=== PATIENT | male | born 1950 | race African-American/Black ===

== ENCOUNTER 2018-04-30 11:19 | Inpatient (IN) ==
[2018-04-30] MEDS ORDERED: SODIUM CHLORIDE 0.9% 500 ML IV STA (12:30)
[2018-04-30] MEDS ORDERED: NITROGLYCERIN 2% OINT 1 INCH/GM PACK TOP STA (12:30)
[2018-04-30] MEDS ORDERED: ONDANSETRON 4 MG/2 ML VIAL IV STA (12:30)
[2018-04-30] MEDS ORDERED: ASPIRIN 325 MG TABLET PO STA (12:30)
[2018-04-30] MEDS ORDERED: ALUM/MAG/SIMETH/LIDO VISC 1:1 30 ML BOTTLE PO STA (12:30)
[2018-04-30] MEDS ORDERED: MORPHINE 4 MG/1 ML VIAL IV STA (12:30)
[2018-04-30 12:44] LABS: Basophils % 0.2 % (0.0-0.8); Eosinophils % 0.1 % (0.00-10.9); Hematocrit 34.3 VOL% (42.0-52.0); Immature Granulocytes Absolute 0.36 #; Lymphocytes # 0.5 10*3/uL (1.4-4.0); Lymphocytes % 2.8 % (21.2-54.2); Mean Corpuscular HGB Conc 39.1 GM/DL (32-36); Mean Corpuscular Hemoglobin 35 PG (27-34); Mean Corpuscular Volume 90.3 FL (87-102); Mean Platelet Volume 10.2 FL (9.6-12.0); Monocytes # 0.7 10*3/uL (0.11-0.8); Monocytes % 3.9 % (1.7-12.7); Neutrophils # 16.2 10*3/uL (1.4-7.4); Platelet Count 171 T/CUMM (130-400); Red Cell Distribution Width 12.9 % (9.3-17.3); White Blood Count 17.8 T/CUMM (4-12)
[2018-04-30 12:46] LABS: INR 1.1; PT Patient Result 11.4 SECS
[2018-04-30 12:56] LABS: Hemoglobin 13.4 GM/DL (14.0-18.0)
[2018-04-30 13:01] LABS: Band Neutrophils 1 % (0-10); Hypochromasia 1+; Lymphocytes 1 % (20-55); Platelet Estimate Normal; Segmented Neutrophils 93 % (50-85); Total Cells Counted 100
[2018-04-30 13:02] LABS: Macrocytosis Slight
[2018-04-30 13:50] LABS: Apearance,Urine CLOUDY (Clear); Bacteria,Urine Many /HPF (Few); Bilirubin,Urine Negative (Negative); Blood, Urine Large mg/dL (Negative); Glucose,Urine (UA) Negative (Negative); Ketones,Urine Negative (Negative); Mucus,Urine Occasional /LPF (Occasional); Nitrite,Urine Negative (Negative); Protein,Urine 100 MG/DL; RBC,Urine 89 /HPF (0-4); Squamous Epithelial Cell,Urine Occasional /HPF (0-10); Urine Specific Gravity 1.009 (1.001-1.035); WBC,Urine 690 /HPF (0-6)
[2018-04-30 13:54] LABS: Urine Color YELLOW. (Yellow)
[2018-04-30] MEDS ORDERED: cefTRIAXone 1,000 MG in SODIUM CHLORIDE 0.9% 100 ML IV STA (14:00)
[2018-04-30 16:02] LABS: Albumin 3.8 G/DL (3.4-5.0); Bilirubin,Total 1.7 MG/DL (0.2-1.0); Calcium 9.3 MG/DL (8.5-10.1); Osmolality,Calculated 239.5 MOS/KG (273-304); Potassium 3.9 MMOL/L (3.5-5.1); Total Protein 8.2 G/DL (6.4-8.3)
[2018-04-30] MEDS ORDERED: HYDROCORTISONE 100 MG VIAL IV STA (16:36)
[2018-04-30] MEDS ORDERED: ONDANSETRON 4 MG/2 ML VIAL IV PRN (17:14)
[2018-04-30] MEDS ORDERED: HYDROmorphone 2 MG/1 ML VIAL IV PRN (17:14)
[2018-04-30] MEDS ORDERED: LEVOFLOXACIN INJ 500 MG in PREMIX 1 EACH IV ONE (18:30)
[2018-04-30] MEDS ORDERED: LEVOFLOXACIN INJ 500 MG in PREMIX 1 EACH IV SCH (18:44)
[2018-04-30] MEDS ORDERED: MEROPENEM 1,000 MG in SODIUM CHLORIDE 0.9% 100 ML IV SCH (18:44)
[2018-04-30] MEDS: SODIUM CHLORIDE 0.9% 1,000 ML IV SCH (18:50)
[2018-04-30] MEDS ORDERED: ENOXAPARIN 30 MG/0.3 ML SYRINGE SUBCUT SCH (21:00)
[2018-04-30] MEDS: MEROPENEM 500 MG in SYRINGE 1 EACH IV SCH (21:40)
[2018-04-30 22:46] LABS: Calcium 8.7 MG/DL (8.5-10.1); Osmolality,Calculated 244.2 MOS/KG (273-304); Potassium 4.2 MMOL/L (3.5-5.1)
[2018-05-01 02:38] LABS: Albumin 2.7 G/DL (3.4-5.0); Bilirubin,Total 1.2 MG/DL (0.2-1.0); Calcium 8.5 MG/DL (8.5-10.1); Osmolality,Calculated 249.8 MOS/KG (273-304); Potassium 3.7 MMOL/L (3.5-5.1); Total Protein 6.7 G/DL (6.4-8.3)
[2018-05-01 02:49] LABS: Basophils % 0.2 % (0.0-0.8); Hematocrit 28.7 VOL% (42.0-52.0); Hemoglobin 11.1 GM/DL (14.0-18.0); Immature Granulocytes % 1.3 %; Immature Granulocytes Absolute 0.16 #; Lymphocytes # 0.2 10*3/uL (1.4-4.0); Lymphocytes % 1.8 % (21.2-54.2); Mean Corpuscular HGB Conc 38.7 GM/DL (32-36); Mean Corpuscular Hemoglobin 35 PG (27-34); Mean Corpuscular Volume 90.8 FL (87-102); Mean Platelet Volume 9.5 FL (9.6-12.0); Monocytes # 0.3 10*3/uL (0.11-0.8); Neutrophils % 94.7 % (38.7-73.9); Platelet Count 129 T/CUMM (130-400); Red Blood Count 3.16 MC/CUMM (3.8-5.5); Red Cell Distribution Width 12.6 % (9.3-17.3); White Blood Count 12.7 T/CUMM (4-12)
[2018-05-01 03:00] LABS: Band Neutrophils 27 % (0-10); Lymphocytes 1 % (20-55); Nucleated Red Blood Cells 1 (0-5); Segmented Neutrophils 71 % (50-85); Total Cells Counted 100
[2018-05-01] MEDS: SODIUM CHLORIDE 0.9% 1,000 ML IV SCH ×3 (03:11→23:20)
[2018-05-01] MEDS: MEROPENEM 500 MG in SYRINGE 1 EACH IV SCH ×3 (03:47→21:00)
[2018-05-01 05:39] LABS: Calcium 8.4 MG/DL (8.5-10.1); Osmolality,Calculated 251.6 MOS/KG (273-304); Potassium 3.7 MMOL/L (3.5-5.1)
[2018-05-01] MEDS ORDERED: NIFEdipine 10 MG CAPSULE PO PRN (07:58)
[2018-05-01] MEDS: amLODIPine 10 MG TABLET PO SCH (08:13)
[2018-05-01] MEDS: PANTOPRAZOLE 40 MG TABLET PO SCH (08:13)
[2018-05-01] MEDS ORDERED: ALUMINUM/MAGNES/SIMETH MAX STR 30 ML UDCUP PO PRN (09:53)
[2018-05-01] MEDS: LEVOFLOXACIN INJ 250 MG in PREMIX 1 EACH IV SCH (21:00)
[2018-05-01] MEDS: ENOXAPARIN 40 MG/0.4 ML SYRINGE SUBCUT SCH (21:02)
[2018-05-02] MEDS: MEROPENEM 500 MG in SYRINGE 1 EACH IV SCH ×3 (04:06→21:16)
[2018-05-02 07:07] LABS: Basophils % 0.1 % (0.0-0.8); Eosinophils % 0.1 % (0.00-10.9); Immature Granulocytes % 0.4 %; Immature Granulocytes Absolute 0.03 #
[2018-05-02 07:14] LABS: INR 1.1; PT Patient Result 11.2 SECS
[2018-05-02 07:30] LABS: Ammonia < 10 UMOL/L (11-32)
[2018-05-02 07:33] LABS: Hemoglobin 11.5 GM/DL (14.0-18.0); Lymphocytes # 0.4 10*3/uL (1.4-4.0); Lymphocytes % 5.4 % (21.2-54.2); Mean Corpuscular HGB Conc 39.1 GM/DL (32-36); Mean Corpuscular Hemoglobin 35 PG (27-34); Mean Corpuscular Volume 90.2 FL (87-102); Mean Platelet Volume 9.7 FL (9.6-12.0); Monocytes # 0.5 10*3/uL (0.11-0.8); Monocytes % 5.6 % (1.7-12.7); Neutrophils # 7.1 10*3/uL (1.4-7.4); Neutrophils % 88.4 % (38.7-73.9); Platelet Count 151 T/CUMM (130-400); Red Blood Count 3.26 MC/CUMM (3.8-5.5); Red Cell Distribution Width 12.7 % (9.3-17.3)
[2018-05-02 07:36] LABS: Alanine Aminotransferase 20 U/L (16-61); Albumin 2.8 G/DL (3.4-5.0); Alkaline Phosphatase 79 U/L (45-117); Aspartate Amino Transferase 24 U/L (0-37); Blood Urea Nitrogen 13 MG/DL (7-18); Calcium 8.7 MG/DL (8.5-10.1); Glucose 81 MG/DL (74-106); Osmolality,Calculated 260.7 MOS/KG (273-304); Potassium 2.9 MMOL/L (3.5-5.1); Sodium 131 MMOL/L (136-145); Total Protein 6.9 G/DL (6.4-8.3); Troponin I Only < 0.015 NG/ML (0.00-0.045)
[2018-05-02 07:40] LABS: Hematocrit 29.4 VOL% (42.0-52.0)
[2018-05-02 07:41] LABS: Hypochromasia 1+; Macrocytosis Slight; Platelet Estimate Normal
[2018-05-02] MEDS: SODIUM CHLORIDE 0.9% 1,000 ML IV SCH ×2 (10:22→15:00)
[2018-05-02] MEDS: POTASSIUM CHLORIDE RIDER 10 MEQ in PREMIX 1 EACH IV SCH ×5 (14:51→18:13)
[2018-05-02] MEDS: PANTOPRAZOLE 40 MG TABLET PO SCH (15:00)
[2018-05-02] MEDS: amLODIPine 10 MG TABLET PO SCH (15:00)
[2018-05-02] MEDS ORDERED: BISACODYL 5 MG TABLET PO ONE (17:00)
[2018-05-02] MEDS: LEVOFLOXACIN INJ 250 MG in PREMIX 1 EACH IV SCH (21:17)
[2018-05-02] MEDS: ENOXAPARIN 40 MG/0.4 ML SYRINGE SUBCUT SCH (21:17)
[2018-05-03] MEDS: MEROPENEM 500 MG in SYRINGE 1 EACH IV SCH ×3 (03:00→20:55)
[2018-05-03] MEDS: SODIUM CHLORIDE 0.9% 1,000 ML IV SCH ×3 (04:34→23:47)
[2018-05-03 06:22] LABS: Bilirubin,Total 1.1 MG/DL (0.2-1.0); Calcium 9.3 MG/DL (8.5-10.1); Osmolality,Calculated 260.7 MOS/KG (273-304); Potassium 2.9 MMOL/L (3.5-5.1); Total Protein 7.5 G/DL (6.4-8.3)
[2018-05-03 06:33] LABS: Basophils % 0.2 % (0.0-0.8); Eosinophils % 0.2 % (0.00-10.9); Hemoglobin 11.7 GM/DL (14.0-18.0); Immature Granulocytes % 0.5 %; Immature Granulocytes Absolute 0.03 #; Lymphocytes # 0.6 10*3/uL (1.4-4.0); Lymphocytes % 10.3 % (21.2-54.2); Mean Corpuscular HGB Conc 39.1 GM/DL (32-36); Mean Corpuscular Hemoglobin 36 PG (27-34); Mean Corpuscular Volume 90.6 FL (87-102); Mean Platelet Volume 9.2 FL (9.6-12.0); Monocytes # 0.6 10*3/uL (0.11-0.8); Monocytes % 9.8 % (1.7-12.7); Neutrophils # 4.5 10*3/uL (1.4-7.4); Platelet Count 157 T/CUMM (130-400); Red Cell Distribution Width 12.8 % (9.3-17.3); White Blood Count 5.6 T/CUMM (4-12)
[2018-05-03 06:45] LABS: Hematocrit 29.9 VOL% (42.0-52.0)
[2018-05-03 06:55] LABS: Hypochromasia 1+; Platelet Estimate Normal
[2018-05-03 06:56] LABS: Macrocytosis Slight
[2018-05-03] MEDS: POTASSIUM CHLORIDE RIDER 10 MEQ in PREMIX 1 EACH IV SCH ×3 (08:05→11:54)
[2018-05-03] MEDS: amLODIPine 10 MG TABLET PO SCH (09:49)
[2018-05-03] MEDS: PANTOPRAZOLE 40 MG TABLET PO SCH (09:49)
[2018-05-03] MEDS ORDERED: POTASSIUM CHLORIDE 20 MEQ TABLET PO ONE (11:29)
[2018-05-03] MEDS: LEVOFLOXACIN INJ 250 MG in PREMIX 1 EACH IV SCH (20:55)
[2018-05-03] MEDS: ENOXAPARIN 40 MG/0.4 ML SYRINGE SUBCUT SCH (20:56)
[2018-05-04] MEDS: MEROPENEM 500 MG in SYRINGE 1 EACH IV SCH ×2 (04:37→12:02)
[2018-05-04 06:29] LABS: Calcium 8.9 MG/DL (8.5-10.1); Osmolality,Calculated 264.4 MOS/KG (273-304)
[2018-05-04] MEDS ORDERED: MAGNESIUM SULF INJ 3 GM in SODIUM CHLORIDE 0.9% 100 ML IV ONE (07:21)
[2018-05-04] MEDS ORDERED: POTASSIUM CHLORIDE 20 MEQ TABLET PO SCH (09:00)
[2018-05-04] MEDS ORDERED: MAGNESIUM OXIDE 400 MG TABLET PO SCH (09:00)
[2018-05-04] MEDS: PANTOPRAZOLE 40 MG TABLET PO SCH (09:35)
[2018-05-04] MEDS: amLODIPine 10 MG TABLET PO SCH (09:35)
[2018-05-04] MEDS: POTASSIUM CHLORIDE RIDER 10 MEQ in PREMIX 1 EACH IV SCH ×2 (09:44→10:38)
[2018-05-04] MEDS ORDERED: POTASSIUM CHLORIDE 20 MEQ TABLET PO ONE (10:29)
[2018-05-04] MEDS: SODIUM CHLORIDE 0.9% 1,000 ML IV SCH (10:38)
[2018-05-04 12:21] VITALS: BP 124/79
== END 2018-05-04 13:36 | disposition swing bed (61) | DRG 871 ==
LOC: N.ED 11:19 → N.EDINP 16:43 → SUATTDRO 16:43 → N.CC 17:12 → N.5E 05-01 09:45
PROVIDERS: ADMIT Internal Medicine

== ENCOUNTER 2018-07-29 11:16 | Inpatient (IN) ==
[2018-07-29 12:35] LABS: Osmolality,Calculated 265.5 MOS/KG (273-304); Potassium 3.7 MMOL/L (3.5-5.1)
[2018-07-29 12:49] LABS: Basophils % 0.1 % (0.0-0.8); Eosinophils % 0.1 % (0.00-10.9); Hematocrit 34.7 VOL% (42.0-52.0); Hemoglobin 13.3 GM/DL (14.0-18.0); Immature Granulocytes % 0.3 %; Immature Granulocytes Absolute 0.02 #; Lymphocytes # 0.7 10*3/uL (1.4-4.0); Lymphocytes % 8.8 % (21.2-54.2); Mean Corpuscular HGB Conc 38.3 GM/DL (32-36); Mean Corpuscular Hemoglobin 33 PG (27-34); Mean Corpuscular Volume 86.1 FL (87-102); Mean Platelet Volume 9.8 FL (9.6-12.0); Monocytes # 0.4 10*3/uL (0.11-0.8); Monocytes % 5.5 % (1.7-12.7); Neutrophils # 6.3 10*3/uL (1.4-7.4); Neutrophils % 85.2 % (38.7-73.9); Platelet Count 170 T/CUMM (130-400); Red Blood Count 4.03 MC/CUMM (3.8-5.5); Red Cell Distribution Width 13.9 % (9.3-17.3); White Blood Count 7.4 T/CUMM (4-12)
[2018-07-29 13:13] LABS: Platelet Estimate Normal
[2018-07-29 13:14] LABS: Anisocytosis 1+; Macrocytosis Slight; Target Cells Few
[2018-07-29] MEDS ORDERED: ACETAMINOPHEN 500 MG TABLET PO STA (16:04)
[2018-07-29] MEDS ORDERED: ACETAMINOPHEN 500 MG TABLET ONE (16:45)
[2018-07-29] MEDS ORDERED: ONDANSETRON 4 MG/2 ML VIAL IV PRN (17:09)
[2018-07-29] MEDS: SODIUM CHLORIDE 0.9% 1,000 ML IV SCH (21:58)
[2018-07-29] MEDS: cefTRIAXone 1,000 MG in SYRINGE 1 EACH IV SCH (21:59)
[2018-07-30] MEDS: cefTRIAXone 1,000 MG in SYRINGE 1 EACH IV SCH (05:17)
[2018-07-30 05:48] LABS: Albumin 3.9 G/DL (3.4-5.0); Bilirubin,Total 0.7 MG/DL (0.2-1.0); Calcium 9.9 MG/DL (8.5-10.1); Potassium 3.3 MMOL/L (3.5-5.1); Thyroid Stimulating Hormone 1.98 uIU/ml (0.358-3.74); Total Protein 7.9 G/DL (6.4-8.3)
[2018-07-30 06:20] LABS: Basophils % 0.4 % (0.0-0.8); Eosinophils # 0.1 10*3/uL (0.0-0.87); Eosinophils % 1.2 % (0.00-10.9); Hematocrit 33.3 VOL% (42.0-52.0); Hemoglobin 12.6 GM/DL (14.0-18.0); Immature Granulocytes % 0.2 %; Immature Granulocytes Absolute 0.01 #; Lymphocytes # 1.3 10*3/uL (1.4-4.0); Lymphocytes % 25.3 % (21.2-54.2); Mean Corpuscular HGB Conc 37.8 GM/DL (32-36); Mean Corpuscular Hemoglobin 33 PG (27-34); Mean Corpuscular Volume 88.1 FL (87-102); Mean Platelet Volume 10.6 FL (9.6-12.0); Monocytes # 0.5 10*3/uL (0.11-0.8); Monocytes % 10.4 % (1.7-12.7); Neutrophils # 3.1 10*3/uL (1.4-7.4); Neutrophils % 62.5 % (38.7-73.9); Platelet Count 152 T/CUMM (130-400); Red Blood Count 3.78 MC/CUMM (3.8-5.5)
[2018-07-30 06:34] LABS: Hypochromasia 1+; Lymphocytes 29 % (20-55); Macrocytosis Slight; Platelet Estimate Normal; Segmented Neutrophils 62 % (50-85); Total Cells Counted 100
[2018-07-30] MEDS: SODIUM CHLORIDE 0.9% 1,000 ML IV SCH (08:20)
[2018-07-30] MEDS ORDERED: PANTOPRAZOLE 40 MG TABLET PO SCH (09:00)
[2018-07-30] MEDS ORDERED: POTASSIUM CHLORIDE 20 MEQ TABLET PO PRN (09:20)
[2018-07-30] MEDS ORDERED: ACETAMINOPHEN 325 MG TABLET PO PRN (09:56)
[2018-07-30] MEDS ORDERED: LORazepam 1 MG TABLET PO ONE (10:29)
[2018-07-30 13:11] VITALS: BP 154/72
[2018-07-30] MEDS ORDERED: TAMSULOSIN 0.4 MG CAPSULE PO SCH (21:00)
== END 2018-07-30 14:30 | disposition hospice, home (50) | DRG 698 ==
LOC: EDBD → EDUNIT# → N.ED 11:16 → N.EDINP 17:09 → N.5E 19:25
PROVIDERS: ADMIT Internal Medicine; ATTEND Internal Medicine

== ENCOUNTER 2018-08-12 03:25 | Inpatient (IN) ==
[2018-08-12] MEDS ORDERED: SODIUM CHLORIDE 0.9% 1,000 ML IV STA (03:39)
[2018-08-12 04:10] LABS: Basophils # 0.1 10*3/uL (0.0-0.2); Basophils % 0.7 % (0.0-0.8); Eosinophils # 0.1 10*3/uL (0.0-0.87); Eosinophils % 1.2 % (0.00-10.9); Hematocrit 41.2 VOL% (42.0-52.0); Hemoglobin 14.2 GM/DL (14.0-18.0); Immature Granulocytes % 0.3 %; Immature Granulocytes Absolute 0.02 #; Lymphocytes # 1.8 10*3/uL (1.4-4.0); Lymphocytes % 24.5 % (21.2-54.2); Mean Corpuscular HGB Conc 34.5 GM/DL (32-36); Mean Corpuscular Hemoglobin 32 PG (27-34); Mean Platelet Volume 11.3 FL (9.6-12.0); Monocytes # 0.3 10*3/uL (0.11-0.8); Monocytes % 4.7 % (1.7-12.7); Neutrophils % 68.6 % (38.7-73.9); Platelet Count 341 T/CUMM (130-400); Red Blood Count 4.43 MC/CUMM (3.8-5.5); Red Cell Distribution Width 15.5 % (9.3-17.3); White Blood Count 7.3 T/CUMM (4-12)
[2018-08-12] MEDS ORDERED: ETOMIDATE 20 MG/10 ML VIAL IV STA (04:21)
[2018-08-12] MEDS ORDERED: ROCURONIUM 100 MG/10 ML VIAL IV STA (04:21)
[2018-08-12 04:32] LABS: Alanine Aminotransferase 26 U/L (16-61); Albumin 3.7 G/DL (3.4-5.0); Alkaline Phosphatase 88 U/L (45-117); Aspartate Amino Transferase 61 U/L (0-37); Blood Urea Nitrogen 55 MG/DL (7-18); Calcium 10.2 MG/DL (8.5-10.1); Glucose 99 MG/DL (74-106); Osmolality,Calculated 323.2 MOS/KG (273-304); Potassium 5.8 MMOL/L (3.5-5.1); Sodium 156 MMOL/L (136-145); Total Protein 10.2 G/DL (6.4-8.3)
[2018-08-12 04:36] LABS: Lactic Acid 3.5 MMOL/L (0.4-2.0)
[2018-08-12] MEDS ORDERED: ATROPINE 1 MG/10 ML SYRINGE ONE (04:45)
[2018-08-12] MEDS ORDERED: EPINEPHrine 1 MG/ML VIAL ONE (04:45)
[2018-08-12] MEDS ORDERED: SODIUM CHLORIDE 0.9% 2,000 ML IV STA (05:14)
[2018-08-12] MEDS ORDERED: ALBUTEROL 2.5 MG/3 ML NEB RESP TX PRN (05:39)
[2018-08-12] MEDS ORDERED: ONDANSETRON 4 MG/2 ML VIAL IV PRN (05:39)
[2018-08-12 05:47] LABS: Apearance,Urine Slightly Hazy (Clear); Bilirubin,Urine Negative (Negative); Blood, Urine Small mg/dL (Negative); Glucose,Urine (UA) Negative (Negative); Ketones,Urine 5 mg/dL (Negative); Nitrite,Urine Negative (Negative); Protein,Urine 30 MG/DL; RBC,Urine 7 /HPF (0-4); Urine Color Yellow (Yellow); Urine Specific Gravity 1.019 (1.001-1.035); Urine Urobilinogen < 2.0 EU/DL (0.2-1.0); WBC,Urine 8 /HPF (0-6)
[2018-08-12] MEDS ORDERED: SODIUM CHLORIDE 0.9% 1,000 ML IV SCH (06:00)
[2018-08-12] MEDS ORDERED: GLUCAGON 1 MG VIAL IM PRN (06:07)
[2018-08-12] MEDS ORDERED: DEXTROSE 50% 25 GM/50 ML VIAL IV PRN (06:07)
[2018-08-12 06:08] LABS: ABG Base Excess -11.8 MMOL/L (-2.5-2.5); ABG HCO3 15.3 MMOL/L (20-26); ABG Oxygen Saturation 99.2 % (95-100); ABG PCO2 45.4 MM HG (35-48); ABG TCO2 15.4 MMOL/L (23-27); Pt O2 Delivery Device Ventilator
[2018-08-12 06:09] LABS: ABG PH 7.174 (7.35-7.45)
[2018-08-12] MEDS ORDERED: SODIUM POLYSTYRENE SULFATE 15 GM/60 ML BOTTLE PO STA (06:21)
[2018-08-12] MEDS: INSULIN REGULAR 100 UNIT/ML SUBCUT SCH ×4 (06:50→23:12)
[2018-08-12] MEDS: PANTOPRAZOLE 40 MG VIAL IV SCH (06:55)
[2018-08-12] MEDS ORDERED: SODIUM CHLORIDE 0.45% 1,000 ML IV SCH (07:00)
[2018-08-12 07:41] LABS: ABG HCO3 16.5 MMOL/L (20-26); ABG Oxygen Saturation 99.3 % (95-100); ABG PCO2 43.6 MM HG (35-48); ABG PH 7.214 (7.35-7.45); ABG TCO2 16.3 MMOL/L (23-27)
[2018-08-12] MEDS: PROPOFOL 1,000 MG/100 ML BOTTLE IV SCH ×2 (07:46→15:41)
[2018-08-12] MEDS: SODIUM BICARB INJ 50 MEQ in STERILE WATER INJ 1,000 ML IV SCH (08:26)
[2018-08-12 08:46] LABS: Calcium 8.6 MG/DL (8.5-10.1); Osmolality,Calculated 328.7 MOS/KG (273-304); Potassium 4.7 MMOL/L (3.5-5.1)
[2018-08-12 09:08] LABS: Risk Ratio 7.08; Thyroid Stimulating Hormone 3.28 uIU/ml (0.358-3.74); VLDL CHOLESTEROL 38.6 MG/DL
[2018-08-12 12:23] LABS: Calcium 8.8 MG/DL (8.5-10.1); Osmolality,Calculated 326.9 MOS/KG (273-304); Potassium 4.5 MMOL/L (3.5-5.1)
[2018-08-12 15:47] LABS: Calcium 8.4 MG/DL (8.5-10.1)
[2018-08-12 15:48] LABS: Osmolality,Calculated 328.7 MOS/KG (273-304); Potassium 3.9 MMOL/L (3.5-5.1)
[2018-08-12 19:30] LABS: Potassium 4.2 MMOL/L (3.5-5.1)
[2018-08-13 04:17] LABS: ABG Base Excess -5.2 MMOL/L (-2.5-2.5); ABG HCO3 20.2 MMOL/L (20-26); ABG PCO2 29.3 MM HG (35-48); ABG PH 7.404 (7.35-7.45); ABG TCO2 16.2 MMOL/L (23-27)
[2018-08-13 04:26] LABS: Basophils % 0.3 % (0.0-0.8); Eosinophils # 0.1 10*3/uL (0.0-0.87); Eosinophils % 0.9 % (0.00-10.9); Hematocrit 27.1 VOL% (42.0-52.0); Hemoglobin 9.5 GM/DL (14.0-18.0); Immature Granulocytes % 0.4 %; Immature Granulocytes Absolute 0.04 #; Lymphocytes # 1.5 10*3/uL (1.4-4.0); Lymphocytes % 14.7 % (21.2-54.2); Mean Corpuscular HGB Conc 35.1 GM/DL (32-36); Mean Corpuscular Hemoglobin 32 PG (27-34); Mean Corpuscular Volume 90.6 FL (87-102); Monocytes # 0.4 10*3/uL (0.11-0.8); Monocytes % 3.9 % (1.7-12.7); Neutrophils # 8.2 10*3/uL (1.4-7.4); Neutrophils % 79.8 % (38.7-73.9); Platelet Count 217 T/CUMM (130-400); Red Blood Count 2.99 MC/CUMM (3.8-5.5); Red Cell Distribution Width 14.9 % (9.3-17.3); White Blood Count 10.3 T/CUMM (4-12)
[2018-08-13 04:43] LABS: Calcium 8.4 MG/DL (8.5-10.1); Potassium 3.5 MMOL/L (3.5-5.1)
[2018-08-13] MEDS: SODIUM BICARB INJ 50 MEQ in STERILE WATER INJ 1,000 ML IV SCH (06:22)
[2018-08-13] MEDS: INSULIN REGULAR 100 UNIT/ML SUBCUT SCH ×4 (06:23→23:10)
[2018-08-13] MEDS: PROPOFOL 1,000 MG/100 ML BOTTLE IV SCH ×2 (06:23→20:36)
[2018-08-13] MEDS: PANTOPRAZOLE 40 MG VIAL IV SCH (06:26)
[2018-08-13] MEDS: ENOXAPARIN 30 MG/0.3 ML SYRINGE SUBCUT SCH (09:41)
[2018-08-13] MEDS: SODIUM BICARB INJ 100 MEQ in STERILE WATER INJ 900 ML IV SCH ×2 (19:58)
[2018-08-14 02:36] LABS: ABG Base Excess 0.1 MMOL/L (-2.5-2.5); ABG HCO3 24.5 MMOL/L (20-26); ABG Oxygen Saturation 99.4 % (95-100); ABG PCO2 35.2 MM HG (35-48); ABG PH 7.439 (7.35-7.45); ABG TCO2 21.3 MMOL/L (23-27); Allen Test Positive; Pt O2 Delivery Device Ventilator
[2018-08-14 04:16] LABS: Basophils % 0.2 % (0.0-0.8); Eosinophils # 0.1 10*3/uL (0.0-0.87); Eosinophils % 1.5 % (0.00-10.9); Hematocrit 25.5 VOL% (42.0-52.0); Hemoglobin 9.5 GM/DL (14.0-18.0); Immature Granulocytes % 0.4 %; Immature Granulocytes Absolute 0.02 #; Lymphocytes # 1.2 10*3/uL (1.4-4.0); Lymphocytes % 20.9 % (21.2-54.2); Mean Corpuscular HGB Conc 37.3 GM/DL (32-36); Mean Corpuscular Hemoglobin 33 PG (27-34); Mean Corpuscular Volume 87.3 FL (87-102); Mean Platelet Volume 12.4 FL (9.6-12.0); Monocytes # 0.3 10*3/uL (0.11-0.8); Neutrophils # 3.9 10*3/uL (1.4-7.4); Platelet Count 213 T/CUMM (130-400); Red Blood Count 2.92 MC/CUMM (3.8-5.5); Red Cell Distribution Width 14.7 % (9.3-17.3); White Blood Count 5.5 T/CUMM (4-12)
[2018-08-14 04:38] LABS: Calcium 8.4 MG/DL (8.5-10.1); Osmolality,Calculated 309.6 MOS/KG (273-304); Potassium 2.8 MMOL/L (3.5-5.1)
[2018-08-14 04:46] LABS: Prealbumin 15.1 MG/DL (20-40)
[2018-08-14] MEDS: POTASSIUM CHLORIDE RIDER 10 MEQ in PREMIX 1 EACH IV PRN ×5 (05:10→09:20)
[2018-08-14] MEDS: PANTOPRAZOLE 40 MG VIAL IV SCH (05:17)
[2018-08-14] MEDS: INSULIN REGULAR 100 UNIT/ML SUBCUT SCH ×4 (06:35→23:34)
[2018-08-14] MEDS: SODIUM BICARB INJ 50 MEQ in STERILE WATER INJ 1,000 ML IV SCH ×3 (10:30→23:34)
[2018-08-14] MEDS: ENOXAPARIN 30 MG/0.3 ML SYRINGE SUBCUT SCH (11:06)
[2018-08-14] MEDS: PROPOFOL 1,000 MG/100 ML BOTTLE IV SCH (11:46)
[2018-08-14] MEDS: SODIUM BICARB INJ 100 MEQ in STERILE WATER INJ 900 ML IV SCH (13:42)
[2018-08-14] MEDS: amLODIPine 5 MG TABLET PO SCH ×2 (15:56→20:20)
[2018-08-14] MEDS: CARVEDILOL 12.5 MG TABLET PO SCH ×2 (15:56→20:20)
[2018-08-14 17:09] LABS: HIV Antigen/Antibody Result Nonreactive (Nonreactive); Hepatitis B Surface Ag Quant 0.12 Index; Hepatitis B Surface Ag Result Negative (Negative); Hepatitis C Virus Ab Quant 0.24 Index; Hepatitis C Virus Ab Result Negative (Negative)
[2018-08-15] MEDS: PROPOFOL 1,000 MG/100 ML BOTTLE IV SCH ×2 (03:54→08:07)
[2018-08-15 03:55] LABS: ABG Base Excess 5.9 MMOL/L (-2.5-2.5); ABG HCO3 29.8 MMOL/L (20-26); ABG Oxygen Saturation 97.6 % (95-100); ABG PCO2 45.1 MM HG (35-48); ABG PH 7.443 (7.35-7.45); ABG TCO2 27.4 MMOL/L (23-27); Allen Test Positive; Pt O2 Delivery Device Ventilator
[2018-08-15 04:59] LABS: Basophils % 0.2 % (0.0-0.8); Eosinophils # 0.1 10*3/uL (0.0-0.87); Eosinophils % 1.3 % (0.00-10.9); Hematocrit 25.3 VOL% (42.0-52.0); Hemoglobin 9.1 GM/DL (14.0-18.0); Immature Granulocytes % 0.8 %; Immature Granulocytes Absolute 0.04 #; Lymphocytes # 1.4 10*3/uL (1.4-4.0); Lymphocytes % 27.7 % (21.2-54.2); Mean Corpuscular Hemoglobin 32 PG (27-34); Mean Corpuscular Volume 89.4 FL (87-102); Mean Platelet Volume 12.3 FL (9.6-12.0); Monocytes # 0.5 10*3/uL (0.11-0.8); Monocytes % 9.2 % (1.7-12.7); Neutrophils # 3.2 10*3/uL (1.4-7.4); Neutrophils % 60.8 % (38.7-73.9); Platelet Count 183 T/CUMM (130-400); Red Blood Count 2.83 MC/CUMM (3.8-5.5); Red Cell Distribution Width 14.2 % (9.3-17.3); White Blood Count 5.2 T/CUMM (4-12)
[2018-08-15] MEDS: PANTOPRAZOLE 40 MG VIAL IV SCH (05:17)
[2018-08-15 05:30] LABS: Calcium 8.1 MG/DL (8.5-10.1); Osmolality,Calculated 281.4 MOS/KG (273-304); Potassium 2.7 MMOL/L (3.5-5.1)
[2018-08-15] MEDS: POTASSIUM CHLORIDE RIDER 10 MEQ in PREMIX 1 EACH IV PRN ×9 (05:56→20:06)
[2018-08-15] MEDS: INSULIN REGULAR 100 UNIT/ML SUBCUT SCH ×3 (06:32→18:29)
[2018-08-15] MEDS: SODIUM BICARB INJ 50 MEQ in STERILE WATER INJ 1,000 ML IV SCH (08:03)
[2018-08-15] MEDS: amLODIPine 5 MG TABLET PO SCH ×2 (08:07→21:05)
[2018-08-15] MEDS: CARVEDILOL 12.5 MG TABLET PO SCH ×2 (08:07→21:05)
[2018-08-15 08:40] LABS: ABG Base Excess 6.3 MMOL/L (-2.5-2.5); ABG HCO3 29.4 MMOL/L (20-26); ABG Oxygen Saturation 97.7 % (95-100); ABG PCO2 36.8 MM HG (35-48); ABG PH 7.521 (7.35-7.45); ABG PO2 120.1 MM HG (80-95); ABG TCO2 30.6 MMOL/L (23-27)
[2018-08-15] MEDS: SODIUM CHLORIDE 0.45% 1,000 ML IV SCH (09:30)
[2018-08-15 16:22] LABS: ABG Oxygen Saturation 99.5 % (95-100); ABG PCO2 39.2 MM HG (35-48); ABG PH 7.462 (7.35-7.45)
[2018-08-16 04:39] LABS: ABG Base Excess 0.8 MMOL/L (-2.5-2.5); ABG HCO3 25.2 MMOL/L (20-26); ABG PCO2 36.4 MM HG (35-48); ABG TCO2 22.6 MMOL/L (23-27); Allen Test Positive
[2018-08-16] MEDS: SODIUM CHLORIDE 0.45% 1,000 ML IV SCH ×2 (05:49→07:39)
[2018-08-16] MEDS: INSULIN REGULAR 100 UNIT/ML SUBCUT SCH ×4 (05:59→18:40)
[2018-08-16] MEDS: PANTOPRAZOLE 40 MG VIAL IV SCH (06:20)
[2018-08-16 06:29] LABS: Basophils % 0.2 % (0.0-0.8); Eosinophils # 0.1 10*3/uL (0.0-0.87); Eosinophils % 1.9 % (0.00-10.9); Hematocrit 23.4 VOL% (42.0-52.0); Hemoglobin 8.8 GM/DL (14.0-18.0); Immature Granulocytes % 0.7 %; Immature Granulocytes Absolute 0.03 #; Lymphocytes # 1.4 10*3/uL (1.4-4.0); Lymphocytes % 31.7 % (21.2-54.2); Mean Corpuscular HGB Conc 37.6 GM/DL (32-36); Mean Corpuscular Hemoglobin 32 PG (27-34); Mean Corpuscular Volume 85.4 FL (87-102); Mean Platelet Volume 12.1 FL (9.6-12.0); Monocytes # 0.4 10*3/uL (0.11-0.8); Monocytes % 8.4 % (1.7-12.7); Neutrophils # 2.5 10*3/uL (1.4-7.4); Neutrophils % 57.1 % (38.7-73.9); Platelet Count 209 T/CUMM (130-400); Red Blood Count 2.74 MC/CUMM (3.8-5.5); Red Cell Distribution Width 13.9 % (9.3-17.3); White Blood Count 4.3 T/CUMM (4-12)
[2018-08-16 06:52] LABS: Hypochromasia 1+; Platelet Estimate Adequate
[2018-08-16 06:56] LABS: Calcium 8.3 MG/DL (8.5-10.1); Osmolality,Calculated 266.2 MOS/KG (273-304); Potassium 3.4 MMOL/L (3.5-5.1)
[2018-08-16] MEDS: amLODIPine 5 MG TABLET PO SCH ×2 (08:53→20:42)
[2018-08-16] MEDS: CARVEDILOL 12.5 MG TABLET PO SCH ×2 (08:53→20:42)
[2018-08-16] MEDS: POTASSIUM CHLORIDE 20 MEQ/15 ML UDCUP PER TUBE PRN ×2 (09:00→11:48)
[2018-08-16] MEDS ORDERED: MAGNESIUM HYDROXIDE SUSP 30 ML UDCUP PO PRN (09:15)
[2018-08-16] MEDS ORDERED: POTASSIUM CHLORIDE 20 MEQ/15 ML UDCUP PO SCH (21:00)
[2018-08-17] MEDS: INSULIN REGULAR 100 UNIT/ML SUBCUT SCH ×2 (00:39→06:56)
[2018-08-17 03:47] LABS: Calcium 8.9 MG/DL (8.5-10.1); Osmolality,Calculated 267.1 MOS/KG (273-304); Potassium 3.8 MMOL/L (3.5-5.1)
[2018-08-17] MEDS: SODIUM CHLORIDE 0.45% 1,000 ML IV SCH (04:46)
[2018-08-17] MEDS ORDERED: POTASSIUM CHLORIDE 20 MEQ TABLET PO PRN (08:23)
[2018-08-17] MEDS: POTASSIUM CHLORIDE 20 MEQ TABLET PO SCH ×2 (09:19→21:43)
[2018-08-17] MEDS: LANSOPRAZOLE ODT 30 MG TABLET PO SCH (09:20)
[2018-08-17] MEDS: amLODIPine 5 MG TABLET PO SCH ×2 (09:20→21:45)
[2018-08-17] MEDS: CARVEDILOL 12.5 MG TABLET PO SCH ×2 (09:20→21:43)
[2018-08-17] MEDS: ACETAMINOPHEN 325 MG TABLET PO PRN (18:25)
[2018-08-18] MEDS: SODIUM CHLORIDE 0.45% 1,000 ML IV SCH (01:15)
[2018-08-18 06:25] LABS: Calcium 9.6 MG/DL (8.5-10.1); Osmolality,Calculated 264.4 MOS/KG (273-304); Potassium 4.1 MMOL/L (3.5-5.1)
[2018-08-18] MEDS: CARVEDILOL 12.5 MG TABLET PO SCH ×2 (10:00→21:56)
[2018-08-18] MEDS: amLODIPine 5 MG TABLET PO SCH (10:00)
[2018-08-18] MEDS: ACETAMINOPHEN 325 MG TABLET PO PRN (10:00)
[2018-08-18] MEDS: LANSOPRAZOLE ODT 30 MG TABLET PO SCH (10:00)
[2018-08-18] MEDS: POTASSIUM CHLORIDE 20 MEQ TABLET PO SCH ×2 (10:00→22:05)
[2018-08-18] MEDS ORDERED: ASPIRIN CHEW 81 MG TABLET PO ONE ×2 (14:19→14:24)
[2018-08-18] MEDS ORDERED: NITROGLYCERIN SL 0.4 MG TABLET SL ONE (14:19)
[2018-08-18] MEDS ORDERED: NITROGLYCERIN SL 0.4 MG TABLET SL PRN (14:26)
[2018-08-18] MEDS ORDERED: ALUM/MAG/SIMETH/LIDO VISC 1:1 30 ML BOTTLE PO ONE (14:27)
[2018-08-18] MEDS ORDERED: KETOROLAC 30 MG/1 ML VIAL ONE (14:34)
[2018-08-18] MEDS ORDERED: KETOROLAC 15 MG/1 ML VIAL IV ONE (14:41)
[2018-08-18] MEDS ORDERED: SODIUM CHLORIDE 0.9% 250 ML IV ONE (14:51)
[2018-08-18 15:05] LABS: CKMB % 8.8 %; Troponin I 0.035 NG/ML (0.00-0.045)
[2018-08-18 21:17] LABS: CKMB % 9.7 %; Troponin I 0.027 NG/ML (0.00-0.045)
[2018-08-19 02:44] LABS: Basophils % 0.3 % (0.0-0.8); Eosinophils # 0.1 10*3/uL (0.0-0.87); Eosinophils % 2.2 % (0.00-10.9); Hematocrit 26.6 VOL% (42.0-52.0); Hemoglobin 9.8 GM/DL (14.0-18.0); Immature Granulocytes % 0.6 %; Immature Granulocytes Absolute 0.02 #; Lymphocytes # 1.4 10*3/uL (1.4-4.0); Lymphocytes % 44.7 % (21.2-54.2); Mean Corpuscular HGB Conc 36.8 GM/DL (32-36); Mean Corpuscular Hemoglobin 32 PG (27-34); Mean Corpuscular Volume 86.6 FL (87-102); Mean Platelet Volume 10.3 FL (9.6-12.0); Monocytes # 0.4 10*3/uL (0.11-0.8); Monocytes % 12.5 % (1.7-12.7); Neutrophils # 1.3 10*3/uL (1.4-7.4); Neutrophils % 39.7 % (38.7-73.9); Platelet Count 250 T/CUMM (130-400); Red Blood Count 3.07 MC/CUMM (3.8-5.5); Red Cell Distribution Width 13.8 % (9.3-17.3); White Blood Count 3.2 T/CUMM (4-12)
[2018-08-19 03:07] LABS: CKMB % 9.3 %; Troponin I 0.024 NG/ML (0.00-0.045)
[2018-08-19] MEDS: SODIUM CHLORIDE 0.45% 1,000 ML IV SCH (09:19)
[2018-08-19] MEDS: ISOSORBIDE MONONITRATE 30 MG TABLET PO SCH (09:43)
[2018-08-19] MEDS: LANSOPRAZOLE ODT 30 MG TABLET PO SCH (09:43)
[2018-08-19] MEDS: POTASSIUM CHLORIDE 20 MEQ TABLET PO SCH ×2 (09:43→23:33)
[2018-08-19] MEDS: CARVEDILOL 12.5 MG TABLET PO SCH ×2 (09:43→23:33)
[2018-08-20] MEDS: SODIUM CHLORIDE 0.45% 1,000 ML IV SCH ×2 (02:00→22:11)
[2018-08-20 03:12] LABS: Basophils % 0.9 % (0.0-0.8); Eosinophils # 0.1 10*3/uL (0.0-0.87); Eosinophils % 2.3 % (0.00-10.9); Hematocrit 25.6 VOL% (42.0-52.0); Hemoglobin 9.4 GM/DL (14.0-18.0); Immature Granulocytes % 0.6 %; Immature Granulocytes Absolute 0.02 #; Lymphocytes # 1.9 10*3/uL (1.4-4.0); Lymphocytes % 54.1 % (21.2-54.2); Mean Corpuscular HGB Conc 36.7 GM/DL (32-36); Mean Corpuscular Hemoglobin 32 PG (27-34); Mean Corpuscular Volume 87.7 FL (87-102); Mean Platelet Volume 11.1 FL (9.6-12.0); Monocytes # 0.4 10*3/uL (0.11-0.8); Neutrophils # 1.1 10*3/uL (1.4-7.4); Neutrophils % 31.1 % (38.7-73.9); Platelet Count 236 T/CUMM (130-400); Red Blood Count 2.92 MC/CUMM (3.8-5.5); Red Cell Distribution Width 13.8 % (9.3-17.3); White Blood Count 3.4 T/CUMM (4-12)
[2018-08-20 04:05] LABS: Eosinophils 3 % (0-10); Lymphocytes 51 % (20-55); Segmented Neutrophils 36 % (50-85)
[2018-08-20 04:09] LABS: Hypochromasia Slight; Platelet Estimate Normal
[2018-08-20 04:10] LABS: Atypical Lymphocytes Few; Total Cells Counted 100
[2018-08-20] MEDS: CARVEDILOL 12.5 MG TABLET PO SCH ×2 (09:12→22:08)
[2018-08-20] MEDS: ISOSORBIDE MONONITRATE 30 MG TABLET PO SCH (09:12)
[2018-08-20] MEDS: POTASSIUM CHLORIDE 20 MEQ TABLET PO SCH ×2 (09:12→22:08)
[2018-08-20] MEDS: LANSOPRAZOLE ODT 30 MG TABLET PO SCH (09:13)
[2018-08-20 09:32] LABS: Albumin (SPE) 3.5 G/DL (3.2-5.3); Albumin (SPE) Rel % 49.9 %; Alpha 1 (SPE) 0.3 G/DL (0.1-0.4); Total Protein (Chem) 7.1 G/DL (6.4-8.3)
[2018-08-20 09:33] LABS: Alpha 1 (SPE) Rel % 4.8 %; Alpha 2 (SPE) 1.1 G/DL (0.4-1.0); Alpha 2 (SPE) Rel % 16.2 %; Beta (SPE) 0.8 G/DL (0.5-1.1); Beta (SPE) Rel % 11.7 %; Gamma (SPE) Rel % 17.4 %
[2018-08-21 06:38] LABS: Basophils % 0.4 % (0.0-0.8); Eosinophils # 0.1 10*3/uL (0.0-0.87); Eosinophils % 2.5 % (0.00-10.9); Hematocrit 24.8 VOL% (42.0-52.0); Hemoglobin 9.2 GM/DL (14.0-18.0); Lymphocytes % 43.8 % (21.2-54.2); Mean Corpuscular HGB Conc 37.1 GM/DL (32-36); Mean Corpuscular Hemoglobin 32 PG (27-34); Mean Corpuscular Volume 86.4 FL (87-102); Mean Platelet Volume 10.2 FL (9.6-12.0); Monocytes # 0.6 10*3/uL (0.11-0.8); Monocytes % 14.2 % (1.7-12.7); Neutrophils # 1.7 10*3/uL (1.4-7.4); Neutrophils % 39.1 % (38.7-73.9); Platelet Count 226 T/CUMM (130-400); Red Blood Count 2.87 MC/CUMM (3.8-5.5); Red Cell Distribution Width 13.7 % (9.3-17.3); White Blood Count 4.5 T/CUMM (4-12)
[2018-08-21 07:07] LABS: Calcium 9.7 MG/DL (8.5-10.1); Osmolality,Calculated 268.1 MOS/KG (273-304); Potassium 4.3 MMOL/L (3.5-5.1)
[2018-08-21] MEDS: ISOSORBIDE MONONITRATE 30 MG TABLET PO SCH (08:41)
[2018-08-21] MEDS: CARVEDILOL 12.5 MG TABLET PO SCH ×2 (08:41→22:30)
[2018-08-21] MEDS: LANSOPRAZOLE ODT 30 MG TABLET PO SCH (08:41)
[2018-08-21] MEDS: POTASSIUM CHLORIDE 20 MEQ TABLET PO SCH ×2 (08:42→22:30)
[2018-08-21] MEDS ORDERED: ASPIRIN EC 81 MG TABLET PO SCH (09:00)
[2018-08-22] MEDS ORDERED: ceFAZolin 1,000 MG in SYRINGE 1 EACH IV ONE (07:00)
[2018-08-22 07:35] LABS: Basophils % 0.5 % (0.0-0.8); Eosinophils # 0.1 10*3/uL (0.0-0.87); Eosinophils % 3.5 % (0.00-10.9); Hematocrit 25.1 VOL% (42.0-52.0); Hemoglobin 9.5 GM/DL (14.0-18.0); Immature Granulocytes % 0.2 %; Immature Granulocytes Absolute 0.01 #; Lymphocytes # 1.8 10*3/uL (1.4-4.0); Lymphocytes % 43.7 % (21.2-54.2); Mean Corpuscular HGB Conc 37.8 GM/DL (32-36); Mean Corpuscular Hemoglobin 32 PG (27-34); Mean Corpuscular Volume 85.4 FL (87-102); Mean Platelet Volume 10.2 FL (9.6-12.0); Monocytes # 0.5 10*3/uL (0.11-0.8); Monocytes % 11.6 % (1.7-12.7); Neutrophils # 1.6 10*3/uL (1.4-7.4); Neutrophils % 40.5 % (38.7-73.9); Platelet Count 219 T/CUMM (130-400); Red Blood Count 2.94 MC/CUMM (3.8-5.5); Red Cell Distribution Width 13.5 % (9.3-17.3); White Blood Count 4.1 T/CUMM (4-12)
[2018-08-22 07:44] LABS: PT Patient Result 10.6 SECS
[2018-08-22 08:11] LABS: Osmolality,Calculated 267.2 MOS/KG (273-304); Potassium 3.9 MMOL/L (3.5-5.1)
[2018-08-22] MEDS: SODIUM CHLORIDE 0.45% 1,000 ML IV SCH ×2 (08:35→13:20)
[2018-08-22] MEDS ORDERED: LIDOCAINE 100 MG/5 ML SYRINGE ONE (10:00)
[2018-08-22] MEDS ORDERED: PROPOFOL 200 MG/20 ML VIAL IV ONE (10:00)
[2018-08-22] MEDS: ISOSORBIDE MONONITRATE 30 MG TABLET PO SCH (12:32)
[2018-08-22] MEDS: LANSOPRAZOLE ODT 30 MG TABLET PO SCH (12:32)
[2018-08-22] MEDS: CARVEDILOL 12.5 MG TABLET PO SCH ×2 (12:32→20:22)
[2018-08-22] MEDS: POTASSIUM CHLORIDE 20 MEQ TABLET PO SCH ×2 (12:32→20:22)
[2018-08-22] MEDS: PIPERACILLIN/TAZOBACTAM 3,375 MG in SODIUM CHLORIDE 0.9% 100 ML IV SCH ×2 (13:59→22:00)
[2018-08-22 14:31] LABS: ABG HCO3 21.9 MMOL/L (20-26); ABG PCO2 37.2 MM HG (35-48); ABG PH 7.375 (7.35-7.45); ABG TCO2 20.2 MMOL/L (23-27); Pt O2 Delivery Device Simple Mask
[2018-08-22] MEDS ORDERED: VANCOMYCIN INJ 1,250 MG in SODIUM CHLORIDE 0.9% 250 ML IV ONE (15:00)
[2018-08-22] MEDS: ALBUTEROL/IPRATROPIUM 3 ML NEB RESP TX SCH ×3 (16:35→23:13)
[2018-08-23] MEDS ORDERED: VANCOMYCIN INJ 750 MG in SODIUM CHLORIDE 0.9% 250 ML IV SCH (03:00)
[2018-08-23] MEDS: ALBUTEROL/IPRATROPIUM 3 ML NEB RESP TX SCH ×6 (03:53→23:12)
[2018-08-23 04:07] LABS: Basophils % 0.1 % (0.0-0.8); Eosinophils % 0.2 % (0.00-10.9); Hematocrit 25.6 VOL% (42.0-52.0); Hemoglobin 9.3 GM/DL (14.0-18.0); Immature Granulocytes % 0.4 %; Immature Granulocytes Absolute 0.05 #; Lymphocytes # 1.7 10*3/uL (1.4-4.0); Lymphocytes % 11.8 % (21.2-54.2); Mean Corpuscular HGB Conc 36.3 GM/DL (32-36); Mean Corpuscular Hemoglobin 32 PG (27-34); Mean Corpuscular Volume 86.8 FL (87-102); Mean Platelet Volume 10.7 FL (9.6-12.0); Monocytes # 0.6 10*3/uL (0.11-0.8); Monocytes % 4.1 % (1.7-12.7); Neutrophils # 11.9 10*3/uL (1.4-7.4); Neutrophils % 83.4 % (38.7-73.9); Platelet Count 218 T/CUMM (130-400); Red Blood Count 2.95 MC/CUMM (3.8-5.5); Red Cell Distribution Width 13.6 % (9.3-17.3); White Blood Count 14.2 T/CUMM (4-12)
[2018-08-23 04:28] LABS: Calcium 9.9 MG/DL (8.5-10.1); Osmolality,Calculated 269.1 MOS/KG (273-304); Potassium 4.6 MMOL/L (3.5-5.1)
[2018-08-23] MEDS: PIPERACILLIN/TAZOBACTAM 3,375 MG in SODIUM CHLORIDE 0.9% 100 ML IV SCH ×3 (06:50→21:45)
[2018-08-23] MEDS: ISOSORBIDE MONONITRATE 30 MG TABLET PO SCH (10:00)
[2018-08-23] MEDS: POTASSIUM CHLORIDE 20 MEQ TABLET PO SCH ×2 (10:00→21:45)
[2018-08-23] MEDS: LANSOPRAZOLE ODT 30 MG TABLET PO SCH (10:00)
[2018-08-23] MEDS: CARVEDILOL 12.5 MG TABLET PO SCH ×2 (10:00→21:40)
[2018-08-23] MEDS: SODIUM CHLORIDE 0.45% 1,000 ML IV SCH (10:12)
[2018-08-24] MEDS ORDERED: diphenhydrAMINE 50 MG/1 ML VIAL IV ONE (02:00)
[2018-08-24] MEDS: HALOPERIDOL 5 MG/ML AMP IV PRN (03:00)
[2018-08-24] MEDS: ALBUTEROL/IPRATROPIUM 3 ML NEB RESP TX SCH ×5 (03:51→19:03)
[2018-08-24] MEDS: PIPERACILLIN/TAZOBACTAM 3,375 MG in SODIUM CHLORIDE 0.9% 100 ML IV SCH ×3 (05:48→21:49)
[2018-08-24 07:25] LABS: Basophils % 0.2 % (0.0-0.8); Eosinophils # 0.2 10*3/uL (0.0-0.87); Eosinophils % 4.4 % (0.00-10.9); Hematocrit 23.7 VOL% (42.0-52.0); Hemoglobin 8.6 GM/DL (14.0-18.0); Immature Granulocytes % 0.2 %; Immature Granulocytes Absolute 0.01 #; Lymphocytes # 1.6 10*3/uL (1.4-4.0); Lymphocytes % 37.5 % (21.2-54.2); Mean Corpuscular HGB Conc 36.3 GM/DL (32-36); Mean Corpuscular Hemoglobin 31 PG (27-34); Mean Corpuscular Volume 86.5 FL (87-102); Mean Platelet Volume 10.9 FL (9.6-12.0); Monocytes # 0.4 10*3/uL (0.11-0.8); Monocytes % 9.4 % (1.7-12.7); Neutrophils % 48.3 % (38.7-73.9); Platelet Count 198 T/CUMM (130-400); Red Blood Count 2.74 MC/CUMM (3.8-5.5); Red Cell Distribution Width 13.5 % (9.3-17.3); White Blood Count 4.1 T/CUMM (4-12)
[2018-08-24 07:57] LABS: Osmolality,Calculated 270.8 MOS/KG (273-304); Potassium 3.9 MMOL/L (3.5-5.1)
[2018-08-24] MEDS: CARVEDILOL 12.5 MG TABLET PO SCH ×2 (10:19→21:42)
[2018-08-24] MEDS: POTASSIUM CHLORIDE 20 MEQ TABLET PO SCH ×2 (10:19→21:42)
[2018-08-24] MEDS: LANSOPRAZOLE ODT 30 MG TABLET PO SCH (10:19)
[2018-08-24] MEDS: SODIUM CHLORIDE 0.45% 1,000 ML IV SCH (17:01)
[2018-08-25] MEDS: ALBUTEROL/IPRATROPIUM 3 ML NEB RESP TX SCH ×6 (00:15→23:11)
[2018-08-25] MEDS: HALOPERIDOL 5 MG/ML AMP IV PRN (01:41)
[2018-08-25] MEDS: PIPERACILLIN/TAZOBACTAM 3,375 MG in SODIUM CHLORIDE 0.9% 100 ML IV SCH ×3 (05:27→22:00)
[2018-08-25] MEDS ORDERED: SODIUM CHLORIDE 0.9% 1,000 ML IV PRN (09:37)
[2018-08-25] MEDS: LANSOPRAZOLE ODT 30 MG TABLET PO SCH (09:38)
[2018-08-25] MEDS: POTASSIUM CHLORIDE 20 MEQ TABLET PO SCH ×2 (09:38→23:24)
[2018-08-25] MEDS: CARVEDILOL 12.5 MG TABLET PO SCH ×2 (09:38→23:24)
[2018-08-25] MEDS: SODIUM CHLORIDE 0.45% 1,000 ML IV SCH (16:02)
[2018-08-25] MEDS: LABETALOL 100 MG/20 ML VIAL IV PRN (23:51)
[2018-08-26] MEDS: HALOPERIDOL 5 MG/ML AMP IV PRN (00:05)
[2018-08-26] MEDS: ALBUTEROL/IPRATROPIUM 3 ML NEB RESP TX SCH ×5 (02:56→19:25)
[2018-08-26] MEDS: LABETALOL 100 MG/20 ML VIAL IV PRN (03:15)
[2018-08-26] MEDS: PIPERACILLIN/TAZOBACTAM 3,375 MG in SODIUM CHLORIDE 0.9% 100 ML IV SCH ×3 (06:23→23:46)
[2018-08-26 08:17] LABS: Basophils % 0.4 % (0.0-0.8); Eosinophils # 0.2 10*3/uL (0.0-0.87); Eosinophils % 3.4 % (0.00-10.9); Hematocrit 37.5 VOL% (42.0-52.0); Hematocrit 37.8 VOL% (42.0-52.0); Hemoglobin 13.5 GM/DL (14.0-18.0); Hemoglobin 13.9 GM/DL (14.0-18.0); Immature Granulocytes % 0.1 %; Immature Granulocytes Absolute 0.01 #; Lymphocytes # 1.9 10*3/uL (1.4-4.0); Lymphocytes % 28.6 % (21.2-54.2); Mean Corpuscular Hemoglobin 31 PG (27-34); Mean Corpuscular Volume 84.8 FL (87-102); Monocytes # 0.5 10*3/uL (0.11-0.8); Monocytes % 7.4 % (1.7-12.7); Neutrophils # 4.1 10*3/uL (1.4-7.4); Neutrophils % 60.1 % (38.7-73.9); Platelet Count 194 T/CUMM (130-400); Red Blood Count 4.42 MC/CUMM (3.8-5.5); Red Cell Distribution Width 14.5 % (9.3-17.3); White Blood Count 6.8 T/CUMM (4-12)
[2018-08-26] MEDS: POTASSIUM CHLORIDE 20 MEQ TABLET PO SCH ×2 (10:02→22:59)
[2018-08-26] MEDS: LANSOPRAZOLE ODT 30 MG TABLET PO SCH (10:02)
[2018-08-26] MEDS: CARVEDILOL 12.5 MG TABLET PO SCH ×2 (10:02→22:59)
[2018-08-26] MEDS: SODIUM CHLORIDE 0.45% 1,000 ML IV SCH (23:46)
[2018-08-27] MEDS: ALBUTEROL/IPRATROPIUM 3 ML NEB RESP TX SCH ×7 (00:31→23:21)
[2018-08-27] MEDS: LABETALOL 100 MG/20 ML VIAL IV PRN (04:03)
[2018-08-27] MEDS: SODIUM CHLORIDE 0.45% 1,000 ML IV SCH (06:13)
[2018-08-27] MEDS: PIPERACILLIN/TAZOBACTAM 3,375 MG in SODIUM CHLORIDE 0.9% 100 ML IV SCH ×3 (06:14→21:48)
[2018-08-27] MEDS: CARVEDILOL 12.5 MG TABLET PO SCH (09:53)
[2018-08-27] MEDS: POTASSIUM CHLORIDE 20 MEQ TABLET PO SCH (09:53)
[2018-08-27] MEDS: LANSOPRAZOLE ODT 30 MG TABLET PO SCH (09:53)
[2018-08-28] MEDS: ALBUTEROL/IPRATROPIUM 3 ML NEB RESP TX SCH ×3 (03:16→10:46)
[2018-08-28] MEDS: POTASSIUM CHLORIDE 20 MEQ TABLET PO SCH ×2 (04:12→09:24)
[2018-08-28] MEDS: CARVEDILOL 12.5 MG TABLET PO SCH ×2 (04:12→09:24)
[2018-08-28] MEDS: PIPERACILLIN/TAZOBACTAM 3,375 MG in SODIUM CHLORIDE 0.9% 100 ML IV SCH ×2 (06:01→15:44)
[2018-08-28] MEDS: SODIUM CHLORIDE 0.45% 1,000 ML IV SCH (06:03)
[2018-08-28] MEDS: LANSOPRAZOLE ODT 30 MG TABLET PO SCH (09:24)
[2018-08-28] MEDS: ACETAMINOPHEN 325 MG TABLET PO PRN (10:56)
[2018-08-28 13:59] VITALS: BP 141/80
== END 2018-08-28 16:54 | DRG 208 ==
LOC: EDBD → EDUNIT# → N.ED 03:25 → SUATTDRO 05:39 → N.EDINP 05:39 → N.ICU 06:08 → N.2E 08-17 13:57 → N.CC 08-22 12:43 → N.5E 08-23 20:30
PROVIDERS: ADMIT Hospitalist; ATTEND Hospitalist

== ENCOUNTER 2018-09-17 04:36 | Inpatient (IN) ==
[2018-09-17] MEDS ORDERED: SODIUM CHLORIDE 0.9% 1,000 ML IV STA (04:57)
[2018-09-17 05:36] LABS: Basophils % 0.1 % (0.0-0.8); Eosinophils # 0.1 10*3/uL (0.0-0.87); Eosinophils % 1.3 % (0.00-10.9); Hematocrit 40.4 VOL% (42.0-52.0); Hemoglobin 13.4 GM/DL (14.0-18.0); Immature Granulocytes % 0.6 %; Immature Granulocytes Absolute 0.04 #; Lymphocytes # 2.1 10*3/uL (1.4-4.0); Lymphocytes % 30.2 % (21.2-54.2); Mean Corpuscular HGB Conc 33.2 GM/DL (32-36); Mean Corpuscular Hemoglobin 30 PG (27-34); Mean Corpuscular Volume 90.4 FL (87-102); Monocytes # 0.9 10*3/uL (0.11-0.8); Monocytes % 12.3 % (1.7-12.7); Neutrophils # 3.9 10*3/uL (1.4-7.4); Neutrophils % 55.5 % (38.7-73.9); Red Blood Count 4.47 MC/CUMM (3.8-5.5); Red Cell Distribution Width 16.1 % (9.3-17.3)
[2018-09-17 05:40] LABS: Albumin 3.3 G/DL (3.4-5.0); Bilirubin,Total 0.7 MG/DL (0.2-1.0); Calcium 10.7 MG/DL (8.5-10.1); Osmolality,Calculated 369.2 MOS/KG (273-304); Total Protein 9.1 G/DL (6.4-8.3)
[2018-09-17 05:43] LABS: Platelet Count 92 T/CUMM (130-400)
[2018-09-17] MEDS ORDERED: DEXTROSE 50% 25 GM/50 ML VIAL IV STA (05:50)
[2018-09-17 05:51] LABS: Lactic Acid 2.2 MMOL/L (0.4-2.0)
[2018-09-17] MEDS ORDERED: INSULIN REGULAR 100 UNIT/ML IV STA (05:51)
[2018-09-17] MEDS ORDERED: DEXTROSE 50% 25 GM/50 ML SYRINGE IV ONE (05:55)
[2018-09-17] MEDS ORDERED: ONDANSETRON 4 MG/2 ML VIAL IV PRN (06:00)
[2018-09-17 06:08] LABS: Acanthocytes Few; Hypochromasia Slight; Platelet Estimate Decreased; Target Cells 1+
[2018-09-17] MEDS ORDERED: MAGNESIUM HYDROXIDE SUSP 30 ML UDCUP PO PRN (08:15)
[2018-09-17] MEDS ORDERED: GLUCOSE GEL 15 GM TUBE PO PRN (08:15)
[2018-09-17] MEDS ORDERED: GLUCAGON 1 MG VIAL IM PRN (08:15)
[2018-09-17] MEDS ORDERED: SODIUM BICARB INJ 50 MEQ in SODIUM CHLORIDE 0.45% 1,000 ML IV SCH (09:00)
[2018-09-17] MEDS ORDERED: SODIUM POLYSTYRENE SULFATE 15 GM/60 ML BOTTLE PO SCH (09:00)
[2018-09-17] MEDS ORDERED: DEXTROSE 50% 25 GM/50 ML VIAL IV PRN (09:23)
[2018-09-17] MEDS: PANTOPRAZOLE 40 MG VIAL IV SCH (09:55)
[2018-09-17] MEDS ORDERED: INSULIN LISPRO 100 UNIT/ML SUBCUT SCH (10:00)
[2018-09-17] MEDS ORDERED: SODIUM BICARB INJ 100 MEQ in DEXTROSE 5% 1,000 ML IV SCH ×2 (10:00→18:48)
[2018-09-17 10:14] LABS: Apearance,Urine CLOUDY (Clear); Bacteria,Urine Occasional /HPF (Few); Bilirubin,Urine Negative (Negative); Blood, Urine Small mg/dL (Negative); Glucose,Urine (UA) Negative (Negative); Hyaline Casts,Urine 7 /LPF (0-3); Ketones,Urine 5 mg/dL (Negative); Mucus,Urine Occasional /LPF (Occasional); Nitrite,Urine Negative (Negative); Protein,Urine 30 MG/DL; RBC,Urine <1 /HPF (0-4); Squamous Epithelial Cell,Urine Occasional /HPF (0-10); Urine Color Amber (Yellow); Urine Specific Gravity 1.018 (1.001-1.035); WBC,Urine 1 /HPF (0-6)
[2018-09-17 12:36] LABS: Calcium 10.2 MG/DL (8.5-10.1); Osmolality,Calculated 378.8 MOS/KG (273-304); Potassium 4.6 MMOL/L (3.5-5.1)
[2018-09-17] MEDS ORDERED: SODIUM BICARB INJ 50 MEQ in STERILE WATER INJ 1,000 ML IV SCH (15:30)
[2018-09-17 16:26] LABS: Calcium 9.6 MG/DL (8.5-10.1); Potassium 4.2 MMOL/L (3.5-5.1)
[2018-09-17] MEDS: SODIUM BICARB INJ 50 MEQ in DEXTROSE 5% 1,000 ML IV SCH (17:21)
[2018-09-17] MEDS ORDERED: SODIUM BICARB INJ 50 MEQ in DEXTROSE 5% 1,000 ML IV SCH (18:48)
[2018-09-17] MEDS ORDERED: SODIUM BICARB INJ 150 MEQ in DEXTROSE 5% 1,000 ML IV SCH (18:48)
[2018-09-17 22:33] LABS: Calcium 9.3 MG/DL (8.5-10.1); Osmolality,Calculated 362.3 MOS/KG (273-304); Potassium 4.5 MMOL/L (3.5-5.1)
[2018-09-18 04:56] LABS: Basophils % 0.3 % (0.0-0.8); Eosinophils # 0.2 10*3/uL (0.0-0.87); Eosinophils % 2.3 % (0.00-10.9); Hematocrit 33.5 VOL% (42.0-52.0); Immature Granulocytes % 0.3 %; Immature Granulocytes Absolute 0.02 #; Lymphocytes # 1.5 10*3/uL (1.4-4.0); Lymphocytes % 22.6 % (21.2-54.2); Mean Corpuscular HGB Conc 32.8 GM/DL (32-36); Mean Corpuscular Hemoglobin 29 PG (27-34); Mean Corpuscular Volume 88.6 FL (87-102); Mean Platelet Volume 14.5 FL (9.6-12.0); Monocytes # 0.5 10*3/uL (0.11-0.8); Monocytes % 7.8 % (1.7-12.7); Neutrophils # 4.3 10*3/uL (1.4-7.4); Neutrophils % 66.7 % (38.7-73.9); Red Blood Count 3.78 MC/CUMM (3.8-5.5); Red Cell Distribution Width 15.9 % (9.3-17.3); White Blood Count 6.5 T/CUMM (4-12)
[2018-09-18 04:57] LABS: Platelet Count 64 T/CUMM (130-400)
[2018-09-18 05:14] LABS: Albumin 2.7 G/DL (3.4-5.0); Bilirubin,Total 0.6 MG/DL (0.2-1.0); Calcium 9.3 MG/DL (8.5-10.1); Potassium 4.4 MMOL/L (3.5-5.1); Total Protein 7.2 G/DL (6.4-8.3)
[2018-09-18 05:24] LABS: Osmolality,Calculated 357.6 MOS/KG (273-304)
[2018-09-18 05:26] LABS: Band Neutrophils 1 % (0-10); Eosinophils 2 % (0-10); Hypochromasia 2+; Lymphocytes 23 % (20-55); Platelet Estimate Decreased; Segmented Neutrophils 65 % (50-85); Total Cells Counted 100
[2018-09-18] MEDS: SODIUM BICARB INJ 50 MEQ in DEXTROSE 5% 1,000 ML IV SCH ×2 (07:53→17:37)
[2018-09-18] MEDS: PANTOPRAZOLE 40 MG VIAL IV SCH (08:00)
[2018-09-18] MEDS ORDERED: SODIUM BICARB INJ 50 MEQ in DEXTROSE 5% 1,000 ML IV SCH (08:06)
[2018-09-18 11:59] LABS: Potassium 3.9 MMOL/L (3.5-5.1)
[2018-09-19] MEDS: SODIUM BICARB INJ 50 MEQ in DEXTROSE 5% 1,000 ML IV SCH (01:25)
[2018-09-19 04:56] LABS: Basophils % 0.2 % (0.0-0.8); Eosinophils # 0.1 10*3/uL (0.0-0.87); Eosinophils % 1.7 % (0.00-10.9); Hemoglobin 9.9 GM/DL (14.0-18.0); Immature Granulocytes % 1.1 %; Immature Granulocytes Absolute 0.06 #; Lymphocytes # 1.5 10*3/uL (1.4-4.0); Lymphocytes % 29.2 % (21.2-54.2); Mean Corpuscular HGB Conc 34.1 GM/DL (32-36); Mean Corpuscular Hemoglobin 29 PG (27-34); Mean Corpuscular Volume 85.8 FL (87-102); Monocytes # 0.3 10*3/uL (0.11-0.8); Monocytes % 5.3 % (1.7-12.7); NRBC # 0.04 10*3/uL; Neutrophils # 3.3 10*3/uL (1.4-7.4); Neutrophils % 62.5 % (38.7-73.9); Red Blood Count 3.38 MC/CUMM (3.8-5.5); Red Cell Distribution Width 15.4 % (9.3-17.3); White Blood Count 5.3 T/CUMM (4-12)
[2018-09-19 05:03] LABS: Platelet Count 51 T/CUMM (130-400)
[2018-09-19 05:17] LABS: Hypochromasia 1+; Ovalocytes Slight; Platelet Estimate Decreased
[2018-09-19 05:21] LABS: Prealbumin 9.4 MG/DL (20-40)
[2018-09-19 05:51] LABS: Calcium 8.2 MG/DL (8.5-10.1); Osmolality,Calculated 328.4 MOS/KG (273-304); Potassium 3.5 MMOL/L (3.5-5.1)
[2018-09-19] MEDS: PANTOPRAZOLE 40 MG VIAL IV SCH (10:00)
[2018-09-19] MEDS: SODIUM CHLORIDE 0.45% 1,000 ML IV SCH (10:00)
[2018-09-19 11:46] LABS: Calcium 8.3 MG/DL (8.5-10.1); Osmolality,Calculated 318.8 MOS/KG (273-304); Potassium 3.4 MMOL/L (3.5-5.1)
[2018-09-19] MEDS: cefTRIAXone 1,000 MG in SYRINGE 1 EACH IV SCH (13:57)
[2018-09-20] MEDS: SODIUM CHLORIDE 0.45% 1,000 ML IV SCH (00:15)
[2018-09-20 05:05] LABS: Calcium 8.2 MG/DL (8.5-10.1); Osmolality,Calculated 306.5 MOS/KG (273-304); Potassium 3.9 MMOL/L (3.5-5.1)
[2018-09-20] MEDS: PANTOPRAZOLE 40 MG VIAL IV SCH (08:55)
[2018-09-20] MEDS: cefTRIAXone 1,000 MG in SYRINGE 1 EACH IV SCH (08:56)
[2018-09-20] MEDS: ALBUMIN 25% 25 GM in PREMIX 1 EACH IV SCH ×2 (09:37→17:53)
[2018-09-20] MEDS: FLUCONAZOLE 40 MG/ML 35 ML/BOTTLE PO SCH (12:54)
[2018-09-21] MEDS: ALBUMIN 25% 25 GM in PREMIX 1 EACH IV SCH (01:28)
[2018-09-21 05:32] LABS: Calcium 8.7 MG/DL (8.5-10.1); Osmolality,Calculated 306.4 MOS/KG (273-304); Potassium 3.2 MMOL/L (3.5-5.1)
[2018-09-21] MEDS: LANSOPRAZOLE ODT 30 MG TABLET NG SCH (09:53)
[2018-09-21] MEDS: FLUCONAZOLE 40 MG/ML 35 ML/BOTTLE PO SCH (09:53)
[2018-09-21] MEDS ORDERED: POTASSIUM CHLORIDE 20 MEQ/15 ML UDCUP NG ONE (12:00)
[2018-09-21] MEDS: POTASSIUM CHLORIDE 20 MEQ/15 ML UDCUP PO SCH (20:44)
[2018-09-22 06:30] LABS: Calcium 9.2 MG/DL (8.5-10.1); Osmolality,Calculated 305.3 MOS/KG (273-304); Potassium 3.7 MMOL/L (3.5-5.1)
[2018-09-22] MEDS: POTASSIUM CHLORIDE 20 MEQ/15 ML UDCUP PO SCH ×2 (10:22→22:15)
[2018-09-22] MEDS: FLUCONAZOLE 40 MG/ML 35 ML/BOTTLE PO SCH (10:22)
[2018-09-22] MEDS: LANSOPRAZOLE ODT 30 MG TABLET NG SCH (10:22)
[2018-09-23 06:30] LABS: Eosinophils # 0.1 10*3/uL (0.0-0.87); Eosinophils % 2.1 % (0.00-10.9); Hematocrit 29.4 VOL% (42.0-52.0); Hemoglobin 9.7 GM/DL (14.0-18.0); Immature Granulocytes % 0.7 %; Immature Granulocytes Absolute 0.04 #; Lymphocytes # 1.3 10*3/uL (1.4-4.0); Lymphocytes % 21.3 % (21.2-54.2); Mean Corpuscular Hemoglobin 29 PG (27-34); Mean Platelet Volume 12.8 FL (9.6-12.0); Monocytes # 0.5 10*3/uL (0.11-0.8); Monocytes % 8.2 % (1.7-12.7); Neutrophils # 4.1 10*3/uL (1.4-7.4); Neutrophils % 67.7 % (38.7-73.9); Platelet Count 90 T/CUMM (130-400); Red Blood Count 3.34 MC/CUMM (3.8-5.5); Red Cell Distribution Width 15.2 % (9.3-17.3); White Blood Count 6.1 T/CUMM (4-12)
[2018-09-23 06:54] LABS: Band Neutrophils 1 % (0-10); Eosinophils 3 % (0-10); Hypochromasia 1+; Lymphocytes 32 % (20-55); Myelocytes 1 %; Platelet Estimate Decreased; Reactive Lymphocytes 1+; Segmented Neutrophils 55 % (50-85); Target Cells 1+; Total Cells Counted 100
[2018-09-23] MEDS: FLUCONAZOLE 40 MG/ML 35 ML/BOTTLE PO SCH (13:34)
[2018-09-23] MEDS: POTASSIUM CHLORIDE 20 MEQ/15 ML UDCUP PO SCH (13:35)
[2018-09-23] MEDS: LANSOPRAZOLE ODT 30 MG TABLET NG SCH (13:35)
[2018-09-24 05:39] LABS: Calcium 9.3 MG/DL (8.5-10.1); Osmolality,Calculated 309.8 MOS/KG (273-304); Potassium 4.9 MMOL/L (3.5-5.1); Prealbumin 13.5 MG/DL (20-40)
[2018-09-24] MEDS: FLUCONAZOLE 40 MG/ML 35 ML/BOTTLE PO SCH (11:10)
[2018-09-24] MEDS: LANSOPRAZOLE ODT 30 MG TABLET NG SCH (11:10)
[2018-09-24] MEDS: POTASSIUM PHOS/SOD PHOS POWDER 250 MG PACK NG SCH ×2 (13:16→16:46)
[2018-09-25 05:24] LABS: Basophils % 0.2 % (0.0-0.8); Eosinophils # 0.2 10*3/uL (0.0-0.87); Eosinophils % 2.7 % (0.00-10.9); Hematocrit 29.3 VOL% (42.0-52.0); Hemoglobin 9.4 GM/DL (14.0-18.0); Immature Granulocytes % 0.3 %; Immature Granulocytes Absolute 0.02 #; Lymphocytes # 1.7 10*3/uL (1.4-4.0); Lymphocytes % 25.9 % (21.2-54.2); Mean Corpuscular HGB Conc 32.1 GM/DL (32-36); Mean Corpuscular Hemoglobin 29 PG (27-34); Mean Corpuscular Volume 89.9 FL (87-102); Mean Platelet Volume 12.7 FL (9.6-12.0); Monocytes # 0.4 10*3/uL (0.11-0.8); Monocytes % 6.3 % (1.7-12.7); Neutrophils # 4.3 10*3/uL (1.4-7.4); Neutrophils % 64.6 % (38.7-73.9); Platelet Count 148 T/CUMM (130-400); Red Blood Count 3.26 MC/CUMM (3.8-5.5); Red Cell Distribution Width 15.6 % (9.3-17.3); White Blood Count 6.6 T/CUMM (4-12)
[2018-09-25 06:06] LABS: Calcium 9.9 MG/DL (8.5-10.1); Osmolality,Calculated 306.7 MOS/KG (273-304); Potassium 4.9 MMOL/L (3.5-5.1)
[2018-09-25] MEDS: FLUCONAZOLE 40 MG/ML 35 ML/BOTTLE PO SCH (12:59)
[2018-09-25] MEDS: LANSOPRAZOLE ODT 30 MG TABLET NG SCH (12:59)
[2018-09-25] MEDS: POTASSIUM PHOS/SOD PHOS POWDER 250 MG PACK NG SCH ×3 (12:59→17:39)
[2018-09-26] MEDS: POTASSIUM PHOS/SOD PHOS POWDER 250 MG PACK NG SCH (11:44)
[2018-09-26] MEDS: LANSOPRAZOLE ODT 30 MG TABLET NG SCH (11:45)
[2018-09-26] MEDS: FLUCONAZOLE 40 MG/ML 35 ML/BOTTLE PO SCH (11:46)
[2018-09-27 06:57] LABS: Calcium 10.1 MG/DL (8.5-10.1); Osmolality,Calculated 304.4 MOS/KG (273-304); Potassium 4.7 MMOL/L (3.5-5.1); Prealbumin 18.4 MG/DL (20-40)
[2018-09-27 07:57] LABS: Basophils % 0.2 % (0.0-0.8); Eosinophils # 0.2 10*3/uL (0.0-0.87); Eosinophils % 4.2 % (0.00-10.9); Hematocrit 27.9 VOL% (42.0-52.0); Hemoglobin 9.4 GM/DL (14.0-18.0); Immature Granulocytes % 0.2 %; Immature Granulocytes Absolute 0.01 #; Lymphocytes # 1.7 10*3/uL (1.4-4.0); Lymphocytes % 33.3 % (21.2-54.2); Mean Corpuscular HGB Conc 33.7 GM/DL (32-36); Mean Corpuscular Hemoglobin 30 PG (27-34); Mean Corpuscular Volume 89.7 FL (87-102); Mean Platelet Volume 11.8 FL (9.6-12.0); Monocytes # 0.3 10*3/uL (0.11-0.8); Monocytes % 6.3 % (1.7-12.7); Neutrophils # 2.8 10*3/uL (1.4-7.4); Neutrophils % 55.8 % (38.7-73.9); Platelet Count 188 T/CUMM (130-400); Red Blood Count 3.11 MC/CUMM (3.8-5.5); Red Cell Distribution Width 15.5 % (9.3-17.3); White Blood Count 5.1 T/CUMM (4-12)
[2018-09-27] MEDS: LANSOPRAZOLE ODT 30 MG TABLET NG SCH (11:40)
[2018-09-27] MEDS ORDERED: MORPHINE 4 MG/1 ML VIAL IV ONE (11:48)
[2018-09-27] MEDS ORDERED: MORPHINE 4 MG/1 ML VIAL ONE (11:50)
[2018-09-27] MEDS ORDERED: PROPOFOL 200 MG/20 ML VIAL IV ONE (14:48)
[2018-09-27] MEDS ORDERED: KETAMINE 500 MG/10 ML VIAL ONE (14:48)
[2018-09-27] MEDS: CARVEDILOL 12.5 MG TABLET PO SCH (18:16)
[2018-09-28 05:15] LABS: Basophils % 0.3 % (0.0-0.8); Eosinophils # 0.1 10*3/uL (0.0-0.87); Eosinophils % 0.7 % (0.00-10.9); Hematocrit 28.3 VOL% (42.0-52.0); Hemoglobin 9.4 GM/DL (14.0-18.0); Immature Granulocytes % 0.6 %; Immature Granulocytes Absolute 0.05 #; Lymphocytes # 1.2 10*3/uL (1.4-4.0); Lymphocytes % 13.4 % (21.2-54.2); Mean Corpuscular HGB Conc 33.2 GM/DL (32-36); Mean Corpuscular Hemoglobin 30 PG (27-34); Mean Corpuscular Volume 89.6 FL (87-102); Mean Platelet Volume 11.6 FL (9.6-12.0); Monocytes # 0.3 10*3/uL (0.11-0.8); Monocytes % 3.4 % (1.7-12.7); Neutrophils # 7.3 10*3/uL (1.4-7.4); Neutrophils % 81.6 % (38.7-73.9); Platelet Count 215 T/CUMM (130-400); Red Blood Count 3.16 MC/CUMM (3.8-5.5); Red Cell Distribution Width 15.3 % (9.3-17.3); White Blood Count 8.9 T/CUMM (4-12)
[2018-09-28 05:44] LABS: Calcium 10.1 MG/DL (8.5-10.1); Osmolality,Calculated 313.9 MOS/KG (273-304); Potassium 4.5 MMOL/L (3.5-5.1)
[2018-09-28] MEDS: CARVEDILOL 12.5 MG TABLET PO SCH ×2 (09:04→18:29)
[2018-09-28] MEDS: LANSOPRAZOLE ODT 30 MG TABLET NG SCH (09:04)
[2018-09-29 06:08] LABS: Calcium 9.4 MG/DL (8.5-10.1); Osmolality,Calculated 317.1 MOS/KG (273-304); Potassium 3.8 MMOL/L (3.5-5.1)
[2018-09-29] MEDS: LANSOPRAZOLE ODT 30 MG TABLET NG SCH (10:05)
[2018-09-29] MEDS: CARVEDILOL 12.5 MG TABLET PO SCH ×2 (10:05→16:49)
[2018-09-30 04:08] LABS: Basophils % 0.1 % (0.0-0.8); Eosinophils # 0.2 10*3/uL (0.0-0.87); Eosinophils % 3.3 % (0.00-10.9); Hemoglobin 8.6 GM/DL (14.0-18.0); Immature Granulocytes % 0.3 %; Immature Granulocytes Absolute 0.02 #; Lymphocytes # 1.6 10*3/uL (1.4-4.0); Lymphocytes % 21.6 % (21.2-54.2); Mean Corpuscular HGB Conc 33.1 GM/DL (32-36); Mean Corpuscular Hemoglobin 29 PG (27-34); Mean Corpuscular Volume 88.4 FL (87-102); Mean Platelet Volume 12.2 FL (9.6-12.0); Monocytes # 0.4 10*3/uL (0.11-0.8); Monocytes % 5.5 % (1.7-12.7); Neutrophils % 69.2 % (38.7-73.9); Platelet Count 181 T/CUMM (130-400); Red Blood Count 2.94 MC/CUMM (3.8-5.5); Red Cell Distribution Width 15.2 % (9.3-17.3); White Blood Count 7.3 T/CUMM (4-12)
[2018-09-30 04:33] LABS: Calcium 9.5 MG/DL (8.5-10.1); Osmolality,Calculated 303.7 MOS/KG (273-304)
[2018-09-30] MEDS: CARVEDILOL 12.5 MG TABLET PO SCH ×2 (10:11→16:45)
[2018-09-30] MEDS: LANSOPRAZOLE ODT 30 MG TABLET NG SCH (10:11)
[2018-10-01 06:00] LABS: Calcium 9.4 MG/DL (8.5-10.1); Osmolality,Calculated 291.4 MOS/KG (273-304); Potassium 4.6 MMOL/L (3.5-5.1); Prealbumin 13.3 MG/DL (20-40)
[2018-10-01] MEDS: LANSOPRAZOLE ODT 30 MG TABLET NG SCH (09:53)
[2018-10-01] MEDS: CARVEDILOL 12.5 MG TABLET PO SCH (09:53)
[2018-10-01 11:43] VITALS: BP 136/78
== END 2018-10-01 13:20 | DRG 682 ==
LOC: EDBD → EDUNIT# → SUATTDRO → N.ED 04:36 → N.EDINP 06:00 → SUATTDRO 06:00 → N.EDINP 07:29 → N.2E 08:03
PROVIDERS: ADMIT Internal Medicine; ATTEND Internal Medicine